=== PATIENT | male | born 2000 | race African-American/Black ===

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

== ENCOUNTER 2023-03-25 21:27 | Emergency (ER) | payer OTHER ==
--- NOTE | 2023-03-25 21:56 | ED ---
Male Urogenital HPI - General Source: patient Mode of arrival: ambulatory Limitations: no limitations <Heidi Block - Last Filed: 03/25/23 21:55> - General Source: patient, RN notes reviewed, old records reviewed <Remberto Bridges - Last Filed: 03/25/23 23:19> - General Chief complaint: Urogenital Stated complaint: UTI Time Seen by Provider: 03/25/23 21:56 - History of Present Illness Initial comments: 22-year-old male presenting with chief complaint of dysuria ongoing for a couple days. (Heidi Block) Patient is a 22-year-old male presents emergency department over concern for possible UTI. Patient's girlfriend has similar complaints. Has burning with urination 2 days. Did have a one-time episode of sensitivity to his testicles but that has since passed. No skin changes. No concern for STDs as he does not have multiple partners, and he was recently tested last month and was clean. Denies any purulent discharge. Denies any rashes. Presents over concern for possible UTI. Primary complaint of burning with urination. No fevers. No significant past medical history. Originally he was evaluated as a quick note. (Remberto Bridges) - Related Data Previous Rx's Medication Instructions Recorded Ibuprofen [Motrin] 600 mg PO Q8HR PRN #20 tab 05/29/19 Cephalexin [Keflex] 500 mg PO Q12HR 5 Days #10 cap 03/25/23 Allergies Allergy/AdvReac Type Severity Reaction Status Date / Time No Known Allergies Allergy Verified 03/25/23 21:57 Review of Systems ROS Other: All systems not noted in ROS Statement are negative. <Heidi Block - Last Filed: 03/25/23 21:55> ROS Other: All systems not noted in ROS Statement are negative. <Remberto Bridges - Last Filed: 03/25/23 23:19> ROS Statement: Those systems with pertinent positive or pertinent negative responses have been documented in the HPI. Review of Systems: CONST: Denies fever EYES: Denies blurry vision ENT: Denies nasal congestion C/V: Denies Chest pain RESP: Denies shortness of breath GI: Denies abdominal pain : Endorses dysuria SKIN: Denies rash. MSK: Denies joint pain. NEURO: Denies headache (Remberto Bridges) Past Medical History Past Medical History: No Reported History History of Any Multi-Drug Resistant Organisms: None Reported Past Surgical History: No Surgical Hx Reported Past Psychological History: No Psychological Hx Reported Past Alcohol Use History: None Reported Past Drug Use History: Marijuana <Heidi Block - Last Filed: 03/25/23 21:55> General Exam <Heidi Block - Last Filed: 03/25/23 21:55> <Remberto Bridges - Last Filed: 03/25/23 23:19> - General Exam Comments Initial Comments: Visual Physical Exam Vital signs reviewed General: Well-appearing, nontoxic, no acute distress. Head: Normocephalic, atraumatic Eyes: PERRLA, EOMI ENT: Airway patent Chest: Nonlabored breathing Skin: No visual rash, normal skin tone Neuro: Alert and oriented 3 Musculoskeletal: No gross abnormalities (Heidi Block) General: Appears in no acute distress. HEAD: Normal with no signs of head trauma. EYES: EOMI. ENT: Hearing grossly intact. RESPIRATORY: No respiratory distress. C/V: Regular rate and rhythm. ABD: Abdomen is nondistended. No abdominal tenderness to palpation. Genital exam unremarkable. No purulent discharge. No testicular tenderness. No skin changes. EXT: No obvious deformity. SKIN: No rashes or lesions observed on exposed skin. NEURO: Alert and oriented. (Remberto Bridges) Course Vital Signs 03/25/23 21:52 Temperature 97.7 F Pulse Rate 60 Respiratory 22 Rate Blood Pressure 120/77 O2 Sat by Pulse 98 Oximetry Medical Decision Making <Remberto Bridges - Last Filed: 03/25/23 23:19> - Medical Decision Making Was pt. sent in by a medical professional or institution (, PA, CHILDREN'S COUNSELOR, urgent care, hospital, or assisted...) When possible be specific @ -No Did you speak to anyone other than the patient for history (EMS, parent, family, police, friend...)? What history was obtained from this source @ -No Did you review nursing and triage notes (agree or disagree)? Why? @ -I reviewed and agree with nursing and triage notes Were old charts reviewed (outside hosp., previous admission, EMS record, old EKG, old radiological studies, urgent care reports/EKG's, assisted records)? Report findings @ -No old charts were reviewed Differential Diagnosis (chest pain, altered mental status, abdominal pain women, abdominal pain men, vaginal bleeding, weakness, fever, dyspnea, syncope, headache, dizziness, GI bleed, back pain, seizure, CVA, palpatations, mental health, musculoskeletal)? @ -UTI, STD, testicular torsion, epididymitis EKG interpreted by me (3pts min.). @ -None done X-rays interpreted by me (1pt min.). @ -None done CT interpreted by me (1pt min.). @ -None done U/S interpreted by me (1pt. min.). @ -None done What testing was considered but not performed or refused? (CT, X-rays, U/S, labs)? Why? @ -Considered ultrasound however patient has not testicular pain currently and had only mild pain before. Primary complaint is dysuria, not testicular pain. No real concern for testicular torsion at this time. Discussed this with the patient and he was in agreement. What meds were considered but not given or refused? Why? @ -None Did you discuss the management of the patient with other professionals (professionals i.e. , PA, CHILDREN'S COUNSELOR, lab, RT, psych nurse, social work faculty member, supervisor remelt, teacher, military source operations officer, patient case coordinator)? Give summary @ -No Was smoking cessation discussed for >3mins.? @ -No Was critical care preformed (if so, how long)? @ -No Were there social determinants of health that impacted care today? How? (Homelessness, low income, unemployed, alcoholism, drug addiction, transportation, low edu. Level, literacy, decrease access to med. care, residential, rehab)? @ -No Was there de-escalation of care discussed even if they declined (Discuss DNR or withdrawal of care, Hospice)? DNR status @ -No What co-morbidities impacted this encounter? (DM, HTN, Smoking, COPD, CAD, Cancer, CVA, ARF, Chemo, Hep., AIDS, mental health diagnosis, sleep apnea, morbid obesity)? @ -None Was patient admitted / discharged? Hospital course, mention meds given and route, prescriptions, significant lab abnormalities, going to OR and other pertinent info. @ -Based on the patient's presentation and physical exam, I'm concerned for UTI. Patient had urinalysis obtained and sent. Originally seen was a quick note. Vital signs are within acceptable limits. No further testing needed. Patient agreement this plan. Patient's urine returned positive for UTI. As there is no concern for STDs at this time after discussion patient, we will cover him for UTI. He was in agreement this plan. He will be started on Keflex. Strict return precautions discussed. I will provide the patient with a prescription for Keflex. I instructed the ying ent to follow up with their PCP in the next 1-3 days. I explained that the patient should return to the emergency department if they experience any worsening symptoms. Strict return precautions were discussed with the patient. The patient expressed understanding of these instructions. I answered all questions that the patient had. The patient was discharged home in good condition with their prescriptions and follow up information. Undiagnosed new problem with uncertain prognosis? @ -No Drug Therapy requiring intensive monitoring for toxicity (Heparin, Nitro, Insulin, Cardizem)? @ -No Were any procedures done? @ -No Diagnosis/symptom? @ -UTI Acute, or Chronic, or Acute on Chronic? @ -Acute Uncomplicated (without systemic symptoms) or Complicated (systemic symptoms)? @ -Uncomplicated Side effects of treatment? @ -none Exacerbation, Progression, or Severe Exacerbation] @ -no Poses a threat to life or bodily function? @ -no (Remberto Bridges) - Lab Data Lab Results 03/25/23 Range/Units 22:16 Urine Color Light Yellow Urine Appearance Clear (Clear) Urine pH 6.5 (5.0-8.0) Ur Specific [place] 1.022 (1.001-1.035) Urine Protein Negative (Negative) Urine Glucose (UA) Negative (Negative) Urine Ketones Negative (Negative) Urine Blood Negative (Negative) Urine Nitrite Negative (Negative) Urine Bilirubin Negative (Negative) Urine Urobilinogen <2.0 (<2.0) mg/dL Ur Leukocyte Esterase Large H (Negative) Urine RBC 4 (0-5) /hpf Urine WBC 113 H (0-5) /hpf Amorphous Sediment Rare H (None) /hpf Hyaline Casts 1 (0-2) /lpf Urine Mucus Rare H (None) /hpf Disposition <Heidi Block - Last Filed: 03/25/23 21:55> Is patient prescribed a controlled substance at d/c from ED?: No Time of Disposition: 23:14 <Remberto Bridges - Last Filed: 03/25/23 23:19> Clinical Impression: UTI (urinary tract infection) Disposition: HOME SELF-CARE Condition: Good Instructions (If sedation given, give patient instructions): Urinary Tract Infection in Men (ED) Prescriptions: Cephalexin [Keflex] 500 mg PO Q12HR 5 Days #10 cap Referrals: None,Stated [Primary Care Provider] - 1-2 days Forms: Area PCPs
[2023-03-25 21:58] VITALS: BP 120/77; PULSE 60; RESP 22; TEMP 97.7
[2023-03-25 22:37] LABS: Amorphous Sediment,Urine Rare /hpf; Appearance,Urine Clear (Clear); Bilirubin,Urine Negative (Negative); Blood,Urine Negative (Negative); Color,Urine Light Yellow; Glucose,Urine (UA) Negative (Negative); Hyaline Casts,Urine 1 /lpf (0-2); Ketones,Urine Negative (Negative); Leukocyte Esterase,Urine Large (Negative); Mucus,Urine Rare /hpf; Nitrite,Urine Negative (Negative); PH, Urine 6.5 (5.0-8.0); Protein,Urine Negative (Negative); RBC,Urine 4 /hpf (0-5); Specific Gravity,Urine 1.022 (1.001-1.035); Urobilinogen,Urine <2.0 mg/dL (<2.0); WBC,Urine 113 /hpf (0-5)
[2023-03-25] MEDS ORDERED: CEPHALEXIN 500 MG CAP PO STA (23:17)
[2023-03-26 13:05] LABS: C. trachomatis,PCR Positive (Negative)
[2023-03-26 13:21] LABS: N. gonorrhoeae,PCR Negative (Negative)
== END 2023-03-25 23:34 | disposition home or self-care (01) ==
LOC: EC 21:27
DX: N39.0 Urinary tract infection, site not specified (principal); F12.90 Cannabis use, unspecified, uncomplicated
CPT/HCPCS: 81001; 87086; 87491; 87591; 99283

== ENCOUNTER 2024-08-20 17:09 | Emergency (ER) | payer OTHER ==
[2024-08-20 17:24] VITALS: TEMP 99.5
--- NOTE | 2024-08-20 17:39 | ED ---
General Adult HPI - General Chief complaint: ENT Stated complaint: Throat Swollen Time Seen by Provider: 08/20/24 17:27 Source: patient, RN notes reviewed, old records reviewed Mode of arrival: ambulatory Limitations: no limitations - History of Present Illness Initial comments: 23-year-old male presenting with lower tooth and jaw pain on the left. Patient was seen at outside hospital yesterday and prescribed clindamycin. He has taken several doses. He continues to have significant pain and has an appointment in the next several days with his dentist. No fever. The patient is having a difficult time swallowing secondary to pain. He is a nondiabetic, otherwise healthy. He has had dental caries in this location for some time. - Related Data Previous Rx's Medication Instructions Recorded Ibuprofen [Motrin] 600 mg PO Q8HR PRN #20 tab 05/29/19 Cephalexin [Keflex] 500 mg PO Q12HR 5 Days #10 cap 03/25/23 Allergies Allergy/AdvReac Type Severity Reaction Status Date / Time No Known Allergies Allergy Verified 08/20/24 17:24 Review of Systems ROS Statement: Those systems with pertinent positive or pertinent negative responses have been documented in the HPI. ROS Other: All systems not noted in ROS Statement are negative. Past Medical History Past Medical History: No Reported History History of Any Multi-Drug Resistant Organisms: None Reported Past Surgical History: No Surgical Hx Reported Past Psychological History: No Psychological Hx Reported Smoking Status: Never smoker Past Alcohol Use History: None Reported Past Drug Use History: Marijuana General Exam Limitations: no limitations General appearance: alert, in no apparent distress Head exam: Present: atraumatic, normocephalic Eye exam: Present: normal appearance, PERRL ENT exam: Present: normal oropharynx, other (No trismus, there is some left- sided submandibular swelling and tenderness to palpation. Oropharynx is unremarkable. Significant dental caries left lower molars) Neck exam: Present: normal inspection. Absent: tenderness Cardiovascular Exam: Present: regular rate, normal rhythm GI/Abdominal exam: Present: soft. Absent: distended, tenderness Extremities exam: Present: normal inspection, normal capillary refill Neurological exam: Present: alert, oriented X3 Skin exam: Present: warm, dry, intact Course Vital Signs 08/20/24 17:21 Temperature 99.5 F Pulse Rate 75 Respiratory 16 Rate Blood Pressure 140/83 O2 Sat by Pulse 98 Oximetry - Reevaluation(s) Reevaluation #1: 08/20/24 18:29 Reevaluated after medication feels significantly better. Medical Decision Making - Medical Decision Making Was pt. sent in by a medical professional or institution (HA Sharma, AUTOMATIC LINE SET UP MECHANIC, urgent care, hospital, or correction...) When possible be specific @ -No Did you speak to anyone other than the patient for history (EMS, parent, family, police, friend...)? What history was obtained from this source @ -No Did you review nursing and triage notes (agree or disagree)? Why? @ -I reviewed and agree with nursing and triage notes Were old charts reviewed (outside hosp., previous admission, EMS record, old EKG, old radiological studies, urgent care reports/EKG's, correction records)? Report findings @ -No old charts were reviewed Differential Diagnosis:, Dental abscess, retropharyngeal abscess, peritonsillar abscess, Pelon's angina, pulpitis EKG interpreted by me (3pts min.). @ -As above X-rays interpreted by me (1pt min.). @ -None done CT interpreted by me (1pt min.). @ -None done U/S interpreted by me (1pt. min.). @ -None done What testing was considered but not performed or refused? (CT, X-rays, U/S, labs)? Why? @ -None What meds were considered but not given or refused? Why? @ -None Did you discuss the management of the patient with other professionals (professionals i.e. HA Sharma, AUTOMATIC LINE SET UP MECHANIC, lab, RT, psych nurse, marriage and family social worker, metal or wood blocker, teacher, landcare officer, case assistant)? Give summary @ -No Was smoking cessation discussed for >3mins.? @ -No Was critical care preformed (if so, how long)? @ -No Were there social determinants of health that impacted care today? How? (Homelessness, low income, unemployed, alcoholism, drug addiction, transportatio n, low edu. Level, literacy, decrease access to med. care, custodial, rehab)? @ -No Was there de-escalation of care discussed even if they declined (Discuss DNR or withdrawal of care, Hospice)? DNR status @ -No What co-morbidities impacted this encounter? (DM, HTN, Smoking, COPD, CAD, Cancer, CVA, ARF, Chemo, Hep., AIDS, mental health diagnosis, sleep apnea, morbid obesity)? @ -None Was patient admitted / discharged? Hospital course, mention meds given and route, prescriptions, significant lab abnormalities, going to OR and other pertinent info. @ -3-year-old male with poor dentition, mandibular swelling left lower molars, oropharynx is normal, there is no airway obstruction, no fever, vital signs stable. The provide IV hydration and symptomatic treatment including antibiotics, pain medication, Decadron. Patient feels significantly better on reevaluation. He will continue clindamycin as prescribed and follow with his dentist as planned in 2 days. Undiagnosed new problem with uncertain prognosis? @ -No Drug Therapy requiring intensive monitoring for toxicity (Heparin, Nitro, Insulin, Cardizem)? @ -No Were any procedures done? @ -No Diagnosis/symptom? @ -[Dental caries, likely acute pulpitis Acute, or Chronic, or Acute on Chronic? @ -Acute Uncomplicated (without systemic symptoms) or Complicated (systemic symptoms)? @ -Default Side effects of treatment? @ -No Exacerbation, Progression, or Severe Exacerbation? @ -No Poses a threat to life or bodily function? How? (Chest pain, [place], [place], pneumonia, PE, COPD, DKA, ARF, appy, cholecystitis, CVA, Diverticulitis, Homicidal, Suicidal, threat to staff... and all critical care pts) @ -[Low risk Disposition Clinical Impression: Pain, dental, Acute pulpitis Disposition: HOME SELF-CARE Condition: Fair Instructions (If sedation given, give patient instructions): Toothache (ED), Dental Abscess (ED) Is patient prescribed a controlled substance at d/c from ED?: No Referrals: None,Stated [Primary Care Provider] - 1-2 days Time of Disposition: 18:34
[2024-08-20] MEDS: SODIUM CHLORIDE 0.9% 1,000 ML IV ONE (17:49)
[2024-08-20] MEDS: KETOROLAC 15 MG/ML 1 ML VIAL IVP STA (17:51)
[2024-08-20] MEDS: DEXAMETHASONE SOD PHOSPHATE 10 MG/ML 1 ML VIAL IV STA (17:52)
[2024-08-20] MEDS: AMPICILLIN-SULBACTAM 3 GM in SODIUM CHLORIDE 0.9% 100 ML IVPB STA (17:55)
[2024-08-20 18:47] VITALS: BP 143/79; PULSE 87; RESP 14
== END 2024-08-20 18:47 | disposition home or self-care (01) ==
LOC: EC 17:09
DX: K04.01 Reversible pulpitis (principal)
CPT/HCPCS: 99283; 96365; 96375 ×2; J1100; J0295; J1885

== ENCOUNTER 2024-08-22 01:39 | Emergency (ER) | payer OTHER ==
--- NOTE | 2024-08-22 02:30 | ED ---
ENT HPI - General Chief complaint: Dental/Oral Stated complaint: Dental Pain and Swelling Time Seen by Provider: 08/22/24 02:25 Source: patient, RN notes reviewed Mode of arrival: ambulatory Limitations: no limitations - History of Present Illness Initial comments: 23-year-old male presenting for dental pain x 4 days. States he has been on clindamycin for left-sided dental abscess for the past 2 days however reports swelling in the left neck has worsened and patient feels as though he is having difficulty swallowing due to the swelling. Denies difficulty breathing. Denies fevers, nausea, vomiting. He has a follow-up appointment with his dentist tomorrow. He has been taking ibuprofen with little relief. Otherwise healthy, no other medical conditions. Denies diabetes. - Related Data Previous Rx's Medication Instructions Recorded Ibuprofen [Motrin] 600 mg PO Q8HR PRN #20 tab 05/29/19 Cephalexin [Keflex] 500 mg PO Q12HR 5 Days #10 cap 03/25/23 Allergies Allergy/AdvReac Type Severity Reaction Status Date / Time No Known Allergies Allergy Verified 08/22/24 01:43 Review of Systems ROS Statement: Those systems with pertinent positive or pertinent negative responses have been documented in the HPI. ROS Other: All systems not noted in ROS Statement are negative. Past Medical History Past Medical History: No Reported History History of Any Multi-Drug Resistant Organisms: None Reported Past Surgical History: No Surgical Hx Reported Past Psychological History: No Psychological Hx Reported Smoking Status: Never smoker Past Alcohol Use History: None Reported Past Drug Use History: Marijuana General Exam Limitations: no limitations General appearance: alert, in no apparent distress Head exam: Present: atraumatic, normocephalic, normal inspection Eye exam: Present: normal appearance, PERRL, EOMI. Absent: scleral icterus, conjunctival injection, periorbital swelling ENT exam: Present: normal oropharynx, mucous membranes moist. Absent: normal ex am (Diffuse dental caries throughout, no fluctuant masses or obvious abscesses) Neck exam: Present: tenderness (There is edema and tenderness inferior to the left mandible), full ROM. Absent: normal inspection, meningismus, lymphadenopathy Respiratory exam: Present: normal lung sounds bilaterally. Absent: respiratory distress, wheezes, rales, rhonchi, stridor Cardiovascular Exam: Present: regular rate, normal rhythm, normal heart sounds. Absent: systolic murmur, diastolic murmur, rubs, gallop, clicks Neurological exam: Present: alert, oriented X3 Psychiatric exam: Present: normal affect, normal mood Skin exam: Present: warm, dry, intact, normal color. Absent: rash Course Vital Signs 08/22/24 01:41 Temperature 98 F Pulse Rate 111 H Respiratory 18 Rate Blood Pressure 134/89 O2 Sat by Pulse 100 Oximetry Medical Decision Making - Medical Decision Making Was pt. sent in by a medical professional or institution (HA Sharma, BIOMECHANICAL ENGINEER, urgent care, hospital, or fpc...) When possible be specific @ -No Did you speak to anyone other than the patient for history (EMS, parent, family, police, friend...)? What history was obtained from this source @ -No Did you review nursing and triage notes (agree or disagree)? Why? @ -I reviewed and agree with nursing and triage notes Were old charts reviewed (outside hosp., previous admission, EMS record, old EKG, old radiological studies, urgent care reports/EKG's, fpc records)? Report findings @ -No old charts were reviewed Differential Diagnosis (chest pain, altered mental status, abdominal pain women, abdominal pain men, vaginal bleeding, weakness, fever, dyspnea, syncope, headache, dizziness, GI bleed, back pain, seizure, CVA, palpatations, mental health, musculoskeletal)? @ -Dental abscess, retropharyngeal abscess, Pelon's angina, gingivitis, pulpitis EKG interpreted by me (3pts min.). @ -None X-rays interpreted by me (1pt min.). @ -None done CT interpreted by me (1pt min.). @ -CT soft tissue neck reveals minimal bilateral lower mandibular molar ne urogenic disease, significant inflammation throughout face and submental region, no drainable abscess U/S interpreted by me (1pt. min.). @ -None done What testing was considered but not performed or refused? (CT, X-rays, U/S, labs)? Why? @ -None What meds were considered but not given or refused? Why? @ -None Did you discuss the management of the patient with other professionals (professionals i.e. HA Sharma, BIOMECHANICAL ENGINEER, lab, RT, psych nurse, social worker delinquency prevention, community relations police lieutenant, teacher, dog license officer supervisor, case finishing machine adjuster)? Give summary @ -No Was smoking cessation discussed for >3mins.? @ -No Was critical care preformed (if so, how long)? @ -No Were there social determinants of health that impacted care today? How? (Home lessness, low income, unemployed, alcoholism, drug addiction, transportation, low edu. Level, literacy, decrease access to med. care, shelter, rehab)? @ -No Was there de-escalation of care discussed even if they declined (Discuss DNR or withdrawal of care, Hospice)? DNR status @ -No What co-morbidities impacted this encounter? (DM, HTN, Smoking, COPD, CAD, Cancer, CVA, ARF, Chemo, Hep., AIDS, mental health diagnosis, sleep apnea, morbid obesity)? @ -None Was patient admitted / discharged? Hospital course, mention meds given and route, prescriptions, significant lab abnormalities, going to OR and other pertinent info. @ - discharge. 23-year-old male presenting for left lower dental pain x 3 days with left-sided neck swelling. Has been on clindamycin for 3 days with worsening of symptoms. Patient is well-appearing, no tripoding or acute distress. There is mild edema and tenderness inferior to the left mandible. No lip or tongue swelling. Patient was provided with analgesics and a dose of steroid. Lab work remarkable for white blood cell count 16, this may be elevated due to steroid use [address] soft tissue neck reveals minimal bilateral lower mandibular odontogenic disease, significant inflammation throughout face and submental region, no drainable abscess. Upon reevaluation, patient reports pain has improved however continues to experience swelling. Offered admission for IV steroids/antibiotics and oral surgery consult, however patient states he prefers discharge and to follow-up with his dentist tomorrow. I believe this is reasonable at this time. Advised to continue clindamycin as prescribed. Appropriate return precautions and supportive care discussed. Case was discussed with my ED attending Dr. Bridges. Undiagnosed new problem with uncertain prognosis? @ -No Drug Therapy requiring intensive monitoring for toxicity (Heparin, Nitro, Insulin, Cardizem)? @ -No Were any procedures done? @ -No Diagnosis/symptom? @ -Dental infection Acute, or Chronic, or Acute on Chronic? @ -Acute Uncomplicated (without systemic symptoms) or Complicated (systemic symptoms)? @ -Uncomplicated Side effects of treatment? @ -No Exacerbation, Progression, or Severe Exacerbation? @ -No Poses a threat to life or bodily function? How? (Chest pain, [place], [place], pneumonia, PE, COPD, DKA, ARF, appy, cholecystitis, CVA, Diverticulitis, Homicidal, Suicidal, threat to staff... and all critical care pts) @ -Not at this time - Lab Data Result diagrams: 08/22/24 02:40 08/22/24 02:40 Lab Results 08/22/24 08/22/24 Range/Units 02:40 02:40 WBC 15.95 H (4.50-10.00) 10*3/uL RBC 5.68 H (4.40-5.60) 10*6/uL Hgb 15.1 (13.0-17.0) g/dL Hct 45.1 (39.6-50.0) % MCV 79.4 L (80.0-97.0) fL MCH 26.6 L (27.0-32.0) pg MCHC 33.5 (32.0-37.0) g/dL Plt Count 279 (140-440) 10*3/uL MPV 9.6 (9.5-12.2) fL Immature Gran % (Auto) 0.4 % Neutrophils % 70.9 % Lymphocytes % 19.9 % Monocytes % 8.2 % Eosinophils % 0.3 % Basophils % 0.3 % Immature Gran # 0.06 H (0.00-0.04) 10*3/uL Neutrophils # 11.31 H (1.80-7.70) 10*3/uL Lymphocytes # 3.17 (0.90-5.00) 10*3/uL Monocytes # 1.31 H (0.20-1.00) 10*3/uL Eosinophils # 0.05 (0.04-0.35) 10*3/uL Basophils # 0.05 (0.00-0.10) 10*3/uL Sodium 140 (137-145) mmol/L Potassium 4.3 (3.5-5.1) mmol/L Chloride 99 (98-107) mmol/L Carbon Dioxide 28 (22-30) mmol/L Anion Gap 13 mmol/L BUN 17 (9-20) mg/dL Creatinine 0.96 (0.66-1.25) mg/dL Est GFR (CKD-EPI)AfAm >90 (>60 ml/min/1.73 sqM) Est GFR (CKD-EPI)NonAf >90 (>60 ml/min/1.73 sqM) Glucose 97 (74-99) mg/dL Calcium 10.0 (8.4-10.2) mg/dL Total Bilirubin 0.5 (0.2-1.3) mg/dL AST 29 (17-59) U/L ALT 26 (4-49) U/L Alkaline Phosphatase 71 (38-126) U/L Total Protein 8.1 (6.3-8.2) g/dL Albumin 4.8 (3.5-5.0) g/dL Disposition Clinical Impression: Dental infection Disposition: HOME SELF-CARE Condition: Stable Instructions (If sedation given, give patient instructions): Toothache (ED) Additional Instructions: Continue clindamycin as prescribed. Take Tylenol threes and ibuprofen as needed for pain. Drink plenty of ice water. Follow-up for dentist appointment tomorrow. Please return to the Emergency Department if symptoms worsen or any other concerns. Is patient prescribed a controlled substance at d/c from ED?: No Referrals: None,Stated [Primary Care Provider] - 1-2 days Time of Disposition: 03:58
[2024-08-22] MEDS: KETOROLAC 15 MG/ML 1 ML VIAL IVP STA (02:36)
[2024-08-22] MEDS: MORPHINE SULFATE 4 MG/ML SYRINGE IVP STA (02:37)
[2024-08-22 03:13] LABS: Basophils # (A) 0.05 10*3/uL (0.00-0.10); Basophils % (A) 0.3 %; Eosinophils # (A) 0.05 10*3/uL (0.04-0.35); Eosinophils % (A) 0.3 %; HCT 45.1 % (39.6-50.0); HGB 15.1 g/dL (13.0-17.0); Lymphocytes # (A) 3.17 10*3/uL (0.90-5.00); Lymphocytes % (A) 19.9 %; MCH 26.6 pg (27.0-32.0); MCHC 33.5 g/dL (32.0-37.0); MCV 79.4 fL (80.0-97.0); Mean Platelet Volume 9.6 fL (9.5-12.2); Monocytes # (A) 1.31 10*3/uL (0.20-1.00); Monocytes % (A) 8.2 %; Neutrophils # (A) 11.31 10*3/uL (1.80-7.70); Neutrophils % (A) 70.9 %; Platelet Count 279 10*3/uL (140-440); RBC 5.68 10*6/uL (4.40-5.60); RDW 12.4 % (11.5-14.5); WBC 15.95 10*3/uL (4.50-10.00)
--- NOTE | 2024-08-22 03:26 | CT ---
EXAM: CT Neck With Intravenous Contrast CLINICAL HISTORY: ITS.REASON CT Reason: neck swelling, dental abscess TECHNIQUE: Axial computed tomography images of the neck with intravenous contrast. CTDI is 8.1 mGy and DLP is 279.9 mGy-cm. This CT exam was performed using one or more of the following dose reduction techniques: automated exposure control, adjustment of the mA and/or kV according to patient size, and/or use of iterative reconstruction technique. COMPARISON: No relevant prior studies available. FINDINGS: Minimal bilateral mandibular molar odontogenic disease. Significant inflammation left lower face and submental region. No drainable abscess identified. No airway narrowing. Enlarged left-sided lymph nodes likely reactive IMPRESSION: Minimal bilateral mandibular molar odontogenic disease. Significant inflammation left lower face and submental region. No drainable abscess identified.
[2024-08-22 03:35] LABS: ALT 26 U/L (4-49); AST 29 U/L (17-59); African American GFR (CKD) >90 (>60 ml/min/1.73 sqM); Albumin 4.8 g/dL (3.5-5.0); Alkaline Phosphatase 71 U/L (38-126); Anion Gap 13 mmol/L; Blood Urea Nitrogen 17 mg/dL (9-20); Carbon Dioxide 28 mmol/L (22-30); Chloride 99 mmol/L (98-107); Glucose 97 mg/dL (74-99); Non-African American GFR(CKD) >90 (>60 ml/min/1.73 sqM); Potassium 4.3 mmol/L (3.5-5.1); Sodium 140 mmol/L (137-145); Total Bilirubin 0.5 mg/dL (0.2-1.3); Total Protein 8.1 g/dL (6.3-8.2)
[2024-08-22] MEDS: DEXAMETHASONE SOD PHOSPHATE 10 MG/ML 1 ML VIAL IVP STA (04:16)
[2024-08-22 04:17] VITALS: BP 110/69; PULSE 72; RESP 15; TEMP 98.2
[2024-08-22] MEDS: ACET/COD 300 MG/30 MG STARTER PACK 6 TAB BTL PO STA (04:17)
== END 2024-08-22 04:21 | disposition home or self-care (01) ==
LOC: EC 01:39
DX: K04.7 Periapical abscess without sinus (principal)
CPT/HCPCS: 36415; 80053; 85025; 70491; 99284; 96374; 96375; J2270; J1100; J1885; Q9967